=== PATIENT | male | born 1935 | race Caucasian/White ===

== ENCOUNTER 2021-11-25 10:33 | Day surgery (SDC) | payer MEDICARE, OTHER ==
[~2021-11-25] VITALS: Ht 190.7 cm; Wt 82.6 kg
[~2021-11-25 10:33] MED LIST: ATROVENT NASAL15 ML NS; BETAPACE 80MG80 MG PO; BUMEX0.5 MG PO; COUMADIN 3MG3 MG/TAB PO; DESITIN MULTI-P99 G1 TP; LIPITOR 10MG10 MG PO; MASON NATURAL1200 MG PO; NYAMYC100000 U/G TP; PRILOSEC 20MG20 MG PO; PROAMATINE10 MG PO; REFRESH OPTIVE0.4 M1 OP; REFRESH OPTIVE10 M2 OP; TRIAMCINOLONE A15 GM TP; VITAMIN B12 1541 TAB PO; VITAMIN C500 MG PO; VITAMIN D31000 I1 PO
[2021-11-25 11:26] LABS: HEMATOCRIT 39.7 % (42.0-52.0); HEMOGLOBIN 13.1 g/dl (13.5-18.0); MEAN CELL VOLUME 90 fl (80.0-100.0); MEAN CORPUSCULAR HEMOGLOBIN 30 pg (27-31); MEAN CORPUSCULAR HGB CONC 33 g/dl (33.0-37.0); MEAN PLATELET VOLUME 10.4 fl (7.4-10.4); PLATELET COUNT 244 K/mm3 (130-400); RED BLOOD COUNT 4.42 M/mm3 (4.20-5.60); REDCELL DISTRIBUTION WIDTH-CV 13.6 % (11.5-14.5)
[2021-11-25] MEDS ORDERED: TYLENOL 325MG325 MG PO (11:40)
[2021-11-25] MEDS ORDERED: ASPERCREME85G TP (11:41)
[2021-11-25] MEDS ORDERED: BEANO400 UNIT PO (11:41)
[2021-11-25 11:43] LABS: CALCIUM 9.5 mg/dL (8.4-10.2); CREATININE, serum 1.3 mg/dL (0.72-1.25); POTASSIUM 4.6 mmol/L (3.5-4.5)
[2021-11-25] MEDS ORDERED: LOTRISONE CREAM15 GM TP (11:43)
[2021-11-25] MEDS ORDERED: MELATONIN3 M1 PO (11:45)
[2021-11-25] MEDS ORDERED: ZINC OXIDE56.7 GM TP (11:50)
[2021-11-25] MEDS ORDERED: B-12 500 MCG PO (11:51)
[2021-11-25 11:54] VITALS: BP 129/76; PULSE 60; TEMP 97.7
[2021-11-25] MEDS ORDERED: NASONEX SPRAY17 GM NS (11:54)
[2021-11-25 12:04] LABS: THYROID STIMULATING HORMONE 2.111 uIU/mL (0.350-4.940)
[2021-11-25 12:13] LABS: INR 2.9 (0.8-3.0); PROTHROMBIN TIME 33.1 SECONDS (9.7-12.8)
[2021-11-25 12:15] LABS: PARTIAL THROMBOPLASTIN TIME 45.6 SECONDS (26.0-37.0)
[2021-11-25 13:00] VITALS: BP 115/79; PULSE 69
--- NOTE | 2021-11-25 13:00 | NUR ---
REPORT RECIEVED FROM [employer] TECHNICIAN, PT SITS UP IN BED, SON IN ROOM. PT IS AWAKE AND ALERT, DECLINED FOOD AT THIS TIME. EKG DONE. HAS NO C/O
[2021-11-25 13:15] VITALS: BP 128/90; PULSE 69
[2021-11-25 13:30] VITALS: BP 139/95; PULSE 70
[2021-11-25 13:45] VITALS: BP 139/95; PULSE 69
[2021-11-25 14:00] VITALS: BP 142/94; PULSE 70
--- NOTE | 2021-11-25 14:00 | NUR ---
Pt sitting up on edge of bed, eating pudding cup. Dr Andres will be coming to speak with pt prior to departing. Son remains at bedside.
--- NOTE | 2021-11-25 14:30 | NUR ---
Pt transfers with steady gait and walker from bed to wheelchair. IV site wrapped with coban. He is assisted out to son's car with belongings.
== END 2021-11-25 14:30 | disposition home or self-care (01) ==
LOC: COL.CAR 10:33
PROVIDERS: Internal Medicine Cardiovascular Disease
DX: I48.91 Unspecified atrial fibrillation (principal); I08.0 Rheumatic disorders of both mitral and aortic valves
CPT/HCPCS: J2704

== ENCOUNTER 2022-11-22 11:21 | Day surgery (SDC) | payer MEDICARE, OTHER ==
[~2022-11-22] VITALS: Ht 190.7 cm; Wt 82.5 kg
[~2022-11-22 11:21] MED LIST changes: +ASPERCREME85G TP; +B-12 500 MCG PO; +BEANO400 UNIT PO; +LOTRISONE CREAM15 GM TP; +MELATONIN3 M1 PO; +NASONEX SPRAY17 GM NS; +TYLENOL 325MG325 MG PO; +ZINC OXIDE56.7 GM TP
[2022-11-22 11:51] VITALS: BP 146/92; PULSE 70; TEMP 98.1
[2022-11-22 12:00] LABS: BASO % 0.3 % (0.0-2.0); EOS # 0.2 K/mm3 (0.0-0.7); EOS % 3.2 % (0.0-4.0); GRAN # 4.9 K/mm3 (1.4-6.5); GRAN % 73.6 % (42.2-75.2); HEMATOCRIT 38.1 % (42.0-52.0); HEMOGLOBIN 12.5 g/dl (13.5-18.0); LYMPH # 0.8 K/mm3 (1.2-3.4); MEAN CELL VOLUME 92 fl (80.0-100.0); MEAN CORPUSCULAR HEMOGLOBIN 30 pg (27-31); MEAN CORPUSCULAR HGB CONC 33 g/dl (33.0-37.0); MEAN PLATELET VOLUME 10.5 fl (7.4-10.4); MONO # 0.7 K/mm3 (0.1-0.6); MONO % 10.6 % (1.7-9.3); PLATELET COUNT 240 K/mm3 (130-400); RED BLOOD COUNT 4.16 M/mm3 (4.20-5.60)
[2022-11-22 12:03] LABS: INR 3.1 (0.8-3.0); PROTHROMBIN TIME 32.9 SECONDS (9.7-12.8)
[2022-11-22 12:05] LABS: PARTIAL THROMBOPLASTIN TIME 49.8 SECONDS (26.0-37.0)
[2022-11-22 12:12] LABS: CALCIUM 9.4 mg/dL (8.4-10.2); CREATININE, serum 1.95 mg/dL (0.72-1.25); POTASSIUM 4.3 mmol/L (3.5-4.5)
[2022-11-22] MEDS ORDERED: CORDARONE200 MG/TAB PO (12:12)
[2022-11-22] MEDS ORDERED: TOPROL XL 25MG25 MG (12:15)
[2022-11-22] MEDS ORDERED: DESITIN RAPID REL13% TP (12:18)
[2022-11-22] MEDS ORDERED: REFRESH OPTIVE10 M2 OP (12:18)
[2022-11-22] MEDS ORDERED: REFRESH OPTIVE0.4 M1 OP (12:19)
[2022-11-22 12:34] LABS: THYROID STIMULATING HORMONE 4.831 uIU/mL (0.350-4.940)
[2022-11-22 14:30] VITALS: BP 131/74; BP 159/97; PULSE 70; PULSE 74
[2022-11-22 14:45] VITALS: BP 134/89; PULSE 69
[2022-11-22 15:00] VITALS: BP 132/79; PULSE 69
[2022-11-22 15:15] VITALS: BP 144/93; PULSE 69
--- NOTE | 2022-11-22 19:05 | NUR ---
Pt brought to [facility] accompanied by son. Pt is scheduled for a cardioversion. IV started, labs drawn. EKG done. Consent form for the procedure signed. Meds and HX reviewed with the pt. Cardioversion done. Pt recovered in [facility]. Offered something to drink, pt accepted. Pt recovered with us for about 1 hr. Due to an emergency procedure discharge instructions were not done until about 1800. Pt was given discharge education and information. No questions at this time. Pt exited the unit by wheelchair to sons car.
== END 2022-11-22 18:26 | disposition home or self-care (01) ==
LOC: COL.CAR 11:21
PROVIDERS: Internal Medicine Cardiovascular Disease
DX: I48.0 Paroxysmal atrial fibrillation (principal)